=== PATIENT | female | born 1955 | race Caucasian/White ===

== ENCOUNTER 2019-07-05 07:33 | Day surgery (SDC) | payer OTHER ==
[~2019-07-05] VITALS: Ht 182.9 cm; Wt 104.3 kg
[~2019-07-05 07:33] MED LIST: LISINOPRIL10 MG PO; SYNTHROID100 MCG PO; SYNTHROID88 MCG PO; VITAMIN D3 COM1 EACH PO
--- NOTE | 2019-07-05 09:14 | NUR ---
07/05/19 0914 Cassandra Beckett 0988 PT ARRIVED TO PACU WITH EYES OPEN AND REORIENTED TO PACU. PT FALLS TO SLEEP EASILY AND VSS. RESP EVEN AND UNLABORED. PT ON 3L VIA NC WITH FACE MASK IN PLACE.
--- NOTE | 2019-07-05 10:23 | NUR ---
PT ALERT, ORIENTED AND SOMEWHAT ANXIOUS. HAS HAD PREVIOUS SCOPE BUT MANY YRS AGO. QUESTIONS ASKED AND ANSWERED. PT DECLINED PRAYER, GAVE BLESSING
--- NOTE | 2019-07-06 08:54 | OR ---
[facility] [address], [place] [address] Signed DATE OF OPERATION: 07/05/2019 SURGEON: Jim Martinez MD PREOPERATIVE DIAGNOSIS: Positive Cologuard test on March 02, 2019. POSTOPERATIVE DIAGNOSIS: Polyps x2, right colon. PROCEDURES: Total colonoscopy to cecum with cold snare polypectomy x1 and cold morcellation polypectomy x1. ANESTHESIA: Intravenous sedation, fentanyl 150 mcg and Versed 8 mg. INDICATIONS: This 63-year-old white woman is a patient of Dr. Hitchcock. She underwent colonoscopy 10 years ago. She underwent a Cologuard test in the direction of Dr. Hitchcock on March 02, 2019, which was positive. She was seen anticipating prompt colonoscopy, but wishes to wait until June for colonoscopy on the basis of concern regarding the coronavirus epidemic. She has had no symptoms of bleeding, diarrhea, or constipation. She now wishes to proceed with colonoscopy. The risks of bleeding, infection, and perforation related to colonoscopy was reviewed with her. She understands and wished to proceed. FINDINGS: The prep was excellent. Complete colonoscopy was undertaken to the cecum without question. The ileocecal valve was well identified. There were two small polyps in the proximal ascending colon, both excised, one with cold snare technique and the other cold morcellation technique. There were no other findings of concern. PROCEDURE NOTE: The patient was brought to the endoscopy suite and placed in lateral decubitus position given intravenous sedation to the point of slurred speech and nystagmus. Digital rectal examination was normal. An Olympus video colonoscope was passed into the rectum and manipulated throughout the colon ultimately intubating the cecum. The ileocecal valve and appendiceal orifice were normal. Scope was withdrawn in the mid ascending colon was a subtle, but adenomatous Electronically Signed By: JIM MARTINEZ MD 07/06/19 0854 PATIENT NAME: ISIDRO CONNOLLY OPERATIVE REPORT DATE OF : 55 REPORT #: [id number] PHYSICIAN: JIM MARTINEZ MD PCP: GUILHERME TRUJILLO PA-C REPORT IS CONFIDENTIAL AND NOT TO BE RELEASED WITHOUT AUTHORIZATION [facility] [address], [place] [address] Signed appearing polyp with a small polyp nearby. The larger polyp was excised with cold snare technique and additional morcellation around the edges to be certain of complete extirpation. The other small polyp was excised with multiple bites of a morcellation device. The scope was then withdrawn and remaining colon showed no evidence of polyps, diverticular formation, colitis, or cancer. Retroflex view was normal. Scope was removed. The patient was taken to the recovery room in good condition. CONCLUDING DIAGNOSIS: Polyps x2. PLAN: Recommend repeat colonoscopy in 5 years or sooner if clinically indicated. She will return to the ongoing care of Dr. Hitchcock. MD ADILSON Bray/ANAL /[id number] Copies: ~ Electronically Signed By: JIM MARTINEZ MD 07/06/19 0854 PATIENT NAME: ISIDRO CONNOLLY OPERATIVE REPORT DATE OF : 55 REPORT #: [id number] PHYSICIAN: JIM MARTINEZ MD PCP: GUILHERME TRUJILLO PA-C REPORT IS CONFIDENTIAL AND NOT TO BE RELEASED WITHOUT AUTHORIZATION
--- NOTE | 2019-07-07 12:06 | PATH ---
[facility] [address], [place] [address] Signed SPECIMEN(S): A ASCENDING POLYP SPECIMEN(S): B ASCENDING POLYP SPECIMEN SOURCE: A. ASCENDING POLYP B. ASCENDING POLYP CLINICAL HISTORY: Colonoscopy. Positive Cologuard, right colon polyps x 2. MICROSCOPIC DESCRIPTION: Histologic sections of all submitted blocks are examined by light microscopy. These findings, together with the gross examination, support the pathologic diagnosis. FINAL PATHOLOGIC DIAGNOSIS: A. Colon, ascending, polyp, polypectomy: - Fragment of tubular adenoma. - Negative for high-grade dysplasia or malignancy. B. Colon, ascending, polyp #2, polypectomy: - Fragment of colonic mucosa with no histopathologic abnormality. - Negative for dysplasia or malignancy. - See Comment. COMMENT: Regarding specimen B: Multiple additional levels were examined. No histologic correlate to a grossly identified polyp is seen. Correlation with colonoscopy findings is recommended. NAL:cml:C2NR GROSS DESCRIPTION: Two specimens are received in two containers, labeled "SG." A. The specimen, labeled "SG, 1," and designated on the requisition "ascending polyp," is received in formalin and consists of three cueva soft tissue polypoid fragments that measure 0.8 cm in greatest dimension. The specimen is entirely submitted in cassette (A1). B. The specimen, labeled "SG, 2," and designated on the requisition "ascending polyp #2," is received in formalin and consists of three cueva-red soft tissue fragments that measure 0.2 cm in greatest dimension. The specimen is entirely submitted in cassette (B1). AT (under the direct supervision of a pathologist) The Gross Description was prepared using a voice recognition system. The PATIENT NAME: ISIDRO CONNOLLY PATHOLOGY DATE OF : 55 REPORT #: [id number] PHYSICIAN: ADELA FERNÁNDEZ PCP: GUILHERME TRUJILLO PA-C REPORT IS CONFIDENTIAL AND NOT TO BE RELEASED WITHOUT AUTHORIZATION [facility] [address] [address] Signed report was reviewed for accuracy; however, sound-alike word errors, addition and/or deletions may occur. If there is any question about this report, please contact Client Services. PERFORMING LABORATORY: The technical component was performed by [facility] [address] [address] (Manager Statistical Programming: Monique Rodríguez MD; CLIA# [id number]). Professional interpretation was performed by [facility], [address] [address] (CLIA# [id number]). Diagnostician: Neelima Shin MD Pathologist Electronically Signed 07/07/2019 Copies: ~ PATIENT NAME: ISIDRO CONNOLLY PATHOLOGY DATE OF : 55 REPORT #: [id number] PHYSICIAN: ADELA PATHOLOGY PCP: GUILHERME TRUJILLO PA-C REPORT IS CONFIDENTIAL AND NOT TO BE RELEASED WITHOUT AUTHORIZATION
== END 2019-07-05 09:55 | disposition home or self-care (01) ==
LOC: OPS 07:33 → DS 07:33 → OPS 08:30
PROVIDERS: Surgery
PROC: 0DBK8ZZ Excision of Ascending Colon, Via Natural or Artificial Opening Endoscopic (ICD-10-PCS; 2019-07-05)
PROC: 0DBK8ZZ Excision of Ascending Colon, Via Natural or Artificial Opening Endoscopic (ICD-10-PCS; principal; 2019-07-05 08:30)
DX: D12.2 Benign neoplasm of ascending colon (principal); I10 Essential (primary) hypertension; Z79.899 Other long term (current) drug therapy
CPT/HCPCS: 99153; G0500; J2250; J3010; J7121